=== PATIENT | male | born 1975 | race Two or more races ===

== ENCOUNTER 2020-07-29 12:20 | Emergency (ER) | payer OTHER ==
[~2020-07-29] VITALS: Ht 165.1 cm; Wt 67.1 kg
[~2020-07-29 12:20] MED LIST: CHEST CONG100 MG/51 PO; LIQUITUSS200 MG/5 M PO; PRELONE15 MG/5 ML PO; SEPTRA DS TABLE1 TAB PO; ULTRACET PO; ZANTAC150 MG PO
== END 2020-07-29 19:08 | disposition home or self-care (01) ==
LOC: ER 12:20
DX: B34.9 Viral infection, unspecified (principal); Z03.818 Encounter for observation for suspected exposure to other biological agents ruled out; R06.02 Shortness of breath; M25.512 Pain in left shoulder; M25.511 Pain in right shoulder; M25.561 Pain in right knee; K13.79 Other lesions of oral mucosa